=== PATIENT | female | born 1980 | race Caucasian/White ===

== ENCOUNTER 2016-12-17 16:30 | Emergency (ER) | payer SELFPAY ==
--- NOTE | 2016-12-17 19:21 | ED ORDER SUMMARY ---
..... Patient: ASHLY BENAVIDES OrderSheet [facility] VisitID: [id number] [place] [address] 36y, F Registration Date/Time: 12/17/2016 ORDER SHEET Weight: 84.8 kg (stated) Allergies: None GENERAL ORDERS: CBC w Diff Urgent (17:03 12/17/2016 HBivens A.R.N.P.) (Ack 17:04 PWeiler ER Tech1) (17:14 LWhalen R.N.) CMP Urgent (17:12/17/2016 HBivens A.R.N.P.) (Ack 17:04 PWeiler ER Tech1) (17:14 LWhalen R.N.) UA-Culture if indicated Urgent (17:12/17/2016 HBivens A.R.N.P.) (Ack 17:04 PWeiler ER Tech1) (17:14 LWhalen R.N.) Amylase Urgent (17:03 12/17/2016 HBivens A.R.N.P.) (Ack 17:04 PWeiler ER Tech1) (17:14 LWhalen R.N.) Lipase Urgent (17:03 12/17/2016 HBivens A.R.N.P.) (Ack 17:04 PWeiler ER Tech1) (17:14 LWhalen R.N.) Urine Drug Screen Urgent (17:12/17/2016 HBivens A.R.N.P.) (Ack 17:04 PWeiler ER Tech1) (17:14 LWhalen R.N.) MEDICATION ORDERS: IV FLUIDS: IV NS : initial bolus 1000 mL (1000 mL/hr), then none - (NOW) (17:03 12/17/2016 HBivens A.R.N.P.) (17:05 LWhalen R.N.) Toradol IV 30 mg (NOW) (17:12/17/2016 HBivens A.R.N.P.) (17:14 LWhalen R.N.) Zofran IV 4 mg (NOW) (17:03 12/17/2016 HBivens A.R.N.P.) (17:06 Jemal R.N.) IV Saline Lock (17:03 12/17/2016 HBivens A.R.N.P.) (Ack 17:05 Jemal R.N.) Zofran IV 4 mg (NOW) (19:21 12/17/2016 HBivens A.R.N.P.) (Ack 19:21 Gomez R.N.) (19:24 Gomez R.N.) ORDER SHEET NOTES: [Electronically signed by Sowmya Avila R.N. (19:38 12/17/2016)] [Electronically signed by Alexandra LackeyN.PDeana (21:32 12/17/2016)] [Electronically locked/signed by Sowmya Avila R.N. (19:38 12/17/2016)]
--- NOTE | 2016-12-17 19:21 | ED ORDER SUMMARY ---
..... Patient: ASHLY BENAVIDES OrderSheet [facility] VisitID: [id number] [place] [address] 36y, F Registration Date/Time: 12/17/2016 ORDER SHEET Weight: 84.8 kg (stated) Allergies: None GENERAL ORDERS: CBC w Diff Urgent (17:03 12/17/2016 HBivens A.R.N.P.) (Ack 17:04 PWeiler ER Tech1) (17:14 LWhalen R.N.) CMP Urgent (17:12/17/2016 HBivens A.R.N.P.) (Ack 17:04 PWeiler ER Tech1) (17:14 LWhalen R.N.) UA-Culture if indicated Urgent (17:12/17/2016 HBivens A.R.N.P.) (Ack 17:04 PWeiler ER Tech1) (17:14 LWhalen R.N.) Amylase Urgent (17:03 12/17/2016 HBivens A.R.N.P.) (Ack 17:04 PWeiler ER Tech1) (17:14 LWhalen R.N.) Lipase Urgent (17:03 12/17/2016 HBivens A.R.N.P.) (Ack 17:04 PWeiler ER Tech1) (17:14 LWhalen R.N.) Urine Drug Screen Urgent (17:12/17/2016 HBivens A.R.N.P.) (Ack 17:04 PWeiler ER Tech1) (17:14 LWhalen R.N.) MEDICATION ORDERS: IV FLUIDS: IV NS : initial bolus 1000 mL (1000 mL/hr), then none - (NOW) (17:03 12/17/2016 HBivens A.R.N.P.) (17:05 LWhalen R.N.) Toradol IV 30 mg (NOW) (17:12/17/2016 HBivens A.R.N.P.) (17:14 LWhalen R.N.) Zofran IV 4 mg (NOW) (17:03 12/17/2016 HBivens A.R.N.P.) (17:06 Jemal R.N.) IV Saline Lock (17:03 12/17/2016 HBivens A.R.N.P.) (Ack 17:05 Jemal R.N.) Zofran IV 4 mg (NOW) (19:21 12/17/2016 HBivens A.R.N.P.) (Ack 19:21 Gomez R.N.) (19:24 Gomez R.N.) ORDER SHEET NOTES: [Electronically signed by Sowmya Avila R.N. (19:38 12/17/2016)] [Electronically signed by Alexandra LackeyN.PDeana (21:32 12/17/2016)] [Electronically locked/signed by Sowmya Avila R.N. (19:38 12/17/2016)]
--- NOTE | 2016-12-17 19:21 | ED NURSING NOTES ---
Clinical Report - Nurses [facility] [place] [address] 12/17/2016 16:32 Patient: ASHLY BENAVIDES TRIAGE Triage time 16:42 Dec 17 2016. Acuity: LEVEL 3. Chief Complaint: ABDOMINAL PAIN, NAUSEA and VOMITING. AVERY COMA SCORE: [place] Coma Scale: 15- eyes open spontaneously (4); best verbal response- oriented x 4 (5); best motor response- obeys commands (6). --17:00 Jacqui Banks R.N. 16:41 12/17/16. BP: 141/89. HR: 84. RR: 18. O2 saturation: 96%. Temp: 98.4 F. Pain level now 8/10. --17:00 Jacqui Banks R.N. Weight: 84.8 kg stated. Height/Length: 64 inches Per Patient. BMI: 32.1. --16:59 Jacqui Banks R.N. Medications Omeprazole Oral. --16:52 Jacqui Banks R.N. Allergies None. --16:52 Jacqui Banks R.N. History Arrived by private vehicle. Historian: patient. ( 2 days of abdominal pain and vomiting. Had this on [facility] and found out she had a ruptured ovarian cyst and torsion.). She has had nausea, vomiting and abdominal pain. PAST MEDICAL HX: The patient has had a hysterectomy. SOCIAL HX: Never smoker. History of drug use: marijuana. No alcohol use. No recent travel. No known contact with a sick individual. SELF HARM ASSESSMENT: A self harm assessment was performed. The patient answered "no" to the question "Have you recently felt down, depressed, or hopeless?" and "Do you have thoughts of harming or killing yourself?". FALL RISK ASSESSMENT: Fall risk assessment completed. No fall risk identified. NUTRITIONAL RISK ASSESSMENT: The nutritional risk assessment revealed no deficiencies. FUNCTIONAL ASSESSMENT: Functional assessment: no impairments noted. LEARNING NEEDS ASSESSMENT: The learning needs assessment revealed no barriers. ABUSE ASSESSMENT: Abuse assessment: (yes) The patient was asked "Do you feel safe in your home?". SKIN INTEGRITY ASSESSMENT: Skin integrity risk assessment completed. No skin integrity risk identified. --17:00 Jacqui Banks R.N. PROBLEMS: Ovarian Cyst. Head Injury. Contusion. Syncope. Mental Illness. --16:54 Jacqui Banks R.N. ADDITIONAL SURGERIES: Dilatation & Curettage. Hysterectomy. Laparoscopy. [place] teeth . --16:54 Jacqui Banks R.N. Interventions ID band on patient. --17:00 Jacqui Banks R.N. PHYSICAL ASSESSMENT Ambulatory to room. GENERAL / NEURO / PSYCH: Alert. Oriented X 4. Appears in pain and in distress. HEENT: Mucous membranes are pink. RESPIRATORY: Respirations not labored. Breath sounds within normal limits. CVS: Normal sinus rhythm noted. Capillary refill less than 2 seconds. GI / : Abdomen soft. Abdominal tenderness in the left lower quadrant. Bowel sounds within normal limits. Stool color normal. ( Last BM today and normal.). SKIN: Skin is warm and dry. --17:01 Jacqui Banks R.N. NURSING PROGRESS NOTES The initial plan of care for this patient includes an assessment with efforts to address patient positioning, appropriate ambient lighting and comfortable environmental temperature; impairment of the gastrointestinal system. Pulse oximeter and NIBP monitor placed on patient. Patient gowned. Reassurance given. Call light placed in reach. Side rails up x 1. Bed placed in lowest position. Brakes of bed on. --17:02 Jacqui Banks R.N. 16:52 12/17/2016 Site #1 started via IV in the right antecubital space with an 20g angiocath, with aseptic technique and good blood return; one attempt. Blood drawn: rainbow set. Labeled in the presence of the patient and sent to the lab. Saline lock flushed with 10 mL saline. --17:02 Jacqui Banks R.N. 17:00 12/17/2016 Started bag #1 1000 mL IV Fluids IV NS (Saline); at 1000 mL/hr over 1 hour(s) via site #1 via dial-a-flow. Allergies verified and confirmed 5 rights. IV patency established. IV site checked: no pain, redness, or swelling. IV flushed thoroughly pre- and post-medication administration. --17:05 Jacqui Banks R.N. 17:06 12/17/2016 Zofran (Ondansetron HCl) IVP 4 mg given over 2 minute(s) via site #1. Allergies verified and confirmed 5 rights. IV patency established. IV site checked: no pain, redness, or swelling. IV flushed thoroughly pre- and post-medication administration. --17:06 Jacqui Banks R.N. 17:14 12/17/2016 Toradol IVP 30 mg given over 2 minute(s) via site #1. Allergies verified and confirmed 5 rights. IV patency established. IV site checked: no pain, redness, or swelling. IV flushed thoroughly pre- and post-medication administration. --17:14 Jacqui Banks R.N. Care transferred and report received. --19:16 Sowmya Avila R.N. 19:12/17/16. BP: 145/73. HR: 83. RR: 18. O2 saturation: 100%. Temp: 98 F. Pain level now: 11/16. 17:20 12/17/16. BP: 136/72. HR: 83. RR: 18. O2 saturation: 100%. --19:23 Jacqui Banks R.N. 17:23 12/17/2016 IV Fluids IV NS Discontinued: bag #1 infused. Total amount infused: 1000 mL. IV patency established. IV site checked: no pain, redness, or swelling. IV flushed thoroughly. --19:24 Jacqui Banks R.N. 19:24 12/17/2016 Zofran (Ondansetron HCl) IVP 4 mg given over 30 second(s) via site #1. Allergies verified and confirmed 5 rights. IV patency established. IV site checked: no pain, redness, or swelling. IV flushed thoroughly pre- and post-medication administration. IVP given by RN. --19:24 Sowmya Avila R.N. DISPOSITION / DISCHARGE 19:22 12/17/16. BP: 145/73. HR: 83. RR: 18. O2 saturation: 100%. Temp: 98 F. Pain level now: 11/16. --19:23 Jacqui Banks R.N. 19:35 12/17/2016 Site #1 removed upon discharge. Catheter intact. Manual pressure and bandage applied. --19:38 Sowmya Avila R.N. Condition at departure: improved and stable. No learning barriers present. Discharge instructions provided and reviewed with the patient. Reviewed medication(s) side effects, precautions, dosing and course information. Prescription(s) given to the patient (Shauna). Patient verbalized understanding. Written instructions provided in [place]. The patient was discharged home and accompanied by software configuration analyst. She left the Emergency Department ambulatory and via private vehicle. [employer] driving. --19:38 Sowmya Avila R.N. Locked/Released at 12/17/2016 19:38 by Sowmya Avila R.N.
--- NOTE | 2016-12-17 19:21 | ED NURSING NOTES ---
Clinical Report - Nurses [facility] [place] [address] 12/17/2016 16:32 Patient: ASHLY BENAVIDES TRIAGE Triage time 16:42 Dec 17 2016. Acuity: LEVEL 3. Chief Complaint: ABDOMINAL PAIN, NAUSEA and VOMITING. AVERY COMA SCORE: [place] Coma Scale: 15- eyes open spontaneously (4); best verbal response- oriented x 4 (5); best motor response- obeys commands (6). --17:00 Jacqui Banks R.N. 16:41 12/17/16. BP: 141/89. HR: 84. RR: 18. O2 saturation: 96%. Temp: 98.4 F. Pain level now 8/10. --17:00 Jacqui Banks R.N. Weight: 84.8 kg stated. Height/Length: 64 inches Per Patient. BMI: 32.1. --16:59 Jacqui Banks R.N. Medications Omeprazole Oral. --16:52 Jacqui Banks R.N. Allergies None. --16:52 Jacqui Banks R.N. History Arrived by private vehicle. Historian: patient. ( 2 days of abdominal pain and vomiting. Had this on [facility] and found out she had a ruptured ovarian cyst and torsion.). She has had nausea, vomiting and abdominal pain. PAST MEDICAL HX: The patient has had a hysterectomy. SOCIAL HX: Never smoker. History of drug use: marijuana. No alcohol use. No recent travel. No known contact with a sick individual. SELF HARM ASSESSMENT: A self harm assessment was performed. The patient answered "no" to the question "Have you recently felt down, depressed, or hopeless?" and "Do you have thoughts of harming or killing yourself?". FALL RISK ASSESSMENT: Fall risk assessment completed. No fall risk identified. NUTRITIONAL RISK ASSESSMENT: The nutritional risk assessment revealed no deficiencies. FUNCTIONAL ASSESSMENT: Functional assessment: no impairments noted. LEARNING NEEDS ASSESSMENT: The learning needs assessment revealed no barriers. ABUSE ASSESSMENT: Abuse assessment: (yes) The patient was asked "Do you feel safe in your home?". SKIN INTEGRITY ASSESSMENT: Skin integrity risk assessment completed. No skin integrity risk identified. --17:00 Jacqui Banks R.N. PROBLEMS: Ovarian Cyst. Head Injury. Contusion. Syncope. Mental Illness. --16:54 Jacqui Banks R.N. ADDITIONAL SURGERIES: Dilatation & Curettage. Hysterectomy. Laparoscopy. [place] teeth . --16:54 Jacqui Banks R.N. Interventions ID band on patient. --17:00 Jacqui Banks R.N. PHYSICAL ASSESSMENT Ambulatory to room. GENERAL / NEURO / PSYCH: Alert. Oriented X 4. Appears in pain and in distress. HEENT: Mucous membranes are pink. RESPIRATORY: Respirations not labored. Breath sounds within normal limits. CVS: Normal sinus rhythm noted. Capillary refill less than 2 seconds. GI / : Abdomen soft. Abdominal tenderness in the left lower quadrant. Bowel sounds within normal limits. Stool color normal. ( Last BM today and normal.). SKIN: Skin is warm and dry. --17:01 Jacqui Banks R.N. NURSING PROGRESS NOTES The initial plan of care for this patient includes an assessment with efforts to address patient positioning, appropriate ambient lighting and comfortable environmental temperature; impairment of the gastrointestinal system. Pulse oximeter and NIBP monitor placed on patient. Patient gowned. Reassurance given. Call light placed in reach. Side rails up x 1. Bed placed in lowest position. Brakes of bed on. --17:02 Jacqui Banks R.N. 16:52 12/17/2016 Site #1 started via IV in the right antecubital space with an 20g angiocath, with aseptic technique and good blood return; one attempt. Blood drawn: rainbow set. Labeled in the presence of the patient and sent to the lab. Saline lock flushed with 10 mL saline. --17:02 Jacqui Banks R.N. 17:00 12/17/2016 Started bag #1 1000 mL IV Fluids IV NS (Saline); at 1000 mL/hr over 1 hour(s) via site #1 via dial-a-flow. Allergies verified and confirmed 5 rights. IV patency established. IV site checked: no pain, redness, or swelling. IV flushed thoroughly pre- and post-medication administration. --17:05 Jacqui Banks R.N. 17:06 12/17/2016 Zofran (Ondansetron HCl) IVP 4 mg given over 2 minute(s) via site #1. Allergies verified and confirmed 5 rights. IV patency established. IV site checked: no pain, redness, or swelling. IV flushed thoroughly pre- and post-medication administration. --17:06 Jacqui Banks R.N. 17:14 12/17/2016 Toradol IVP 30 mg given over 2 minute(s) via site #1. Allergies verified and confirmed 5 rights. IV patency established. IV site checked: no pain, redness, or swelling. IV flushed thoroughly pre- and post-medication administration. --17:14 Jacqui Banks R.N. Care transferred and report received. --19:16 Sowmya Avila R.N. 19:12/17/16. BP: 145/73. HR: 83. RR: 18. O2 saturation: 100%. Temp: 98 F. Pain level now: 11/16. 17:20 12/17/16. BP: 136/72. HR: 83. RR: 18. O2 saturation: 100%. --19:23 Jacqui Banks R.N. 17:23 12/17/2016 IV Fluids IV NS Discontinued: bag #1 infused. Total amount infused: 1000 mL. IV patency established. IV site checked: no pain, redness, or swelling. IV flushed thoroughly. --19:24 Jacqui Banks R.N. 19:24 12/17/2016 Zofran (Ondansetron HCl) IVP 4 mg given over 30 second(s) via site #1. Allergies verified and confirmed 5 rights. IV patency established. IV site checked: no pain, redness, or swelling. IV flushed thoroughly pre- and post-medication administration. IVP given by RN. --19:24 Sowmya Avila R.N. DISPOSITION / DISCHARGE 19:22 12/17/16. BP: 145/73. HR: 83. RR: 18. O2 saturation: 100%. Temp: 98 F. Pain level now: 11/16. --19:23 Jacqui Banks R.N. 19:35 12/17/2016 Site #1 removed upon discharge. Catheter intact. Manual pressure and bandage applied. --19:38 Sowmya Avila R.N. Condition at departure: improved and stable. No learning barriers present. Discharge instructions provided and reviewed with the patient. Reviewed medication(s) side effects, precautions, dosing and course information. Prescription(s) given to the patient (Shauna). Patient verbalized understanding. Written instructions provided in [place]. The patient was discharged home and accompanied by gifted teacher. She left the Emergency Department ambulatory and via private vehicle. Inclusion Specialist driving. --19:38 Sowmya Avila R.N. Locked/Released at 12/17/2016 19:38 by Sowmya Avila R.N.
--- NOTE | 2016-12-17 19:21 | ED CLINICAL REPORT ---
Clinical Report - Physicians/Mid Levels [facility] [address] [place] [address] 12/17/2016 16:32 Patient: ASHLY BENAVIDES Time Seen: 16:48; initial patient contact, initial documentation, patient care assumed. Arrived- By private vehicle. Historian- patient. HISTORY OF PRESENT ILLNESS Chief Complaint: VOMITING. This started about 3 - days ago and is still present. It was abrupt in onset. No recent travel. She has had nausea and vomiting. No diarrhea, black stools, bloody stools, constipation or flank pain. No history of possible bad food exposure, known contact with a sick individual or change in routine. She has had abdominal pain. The pain is described as located in the LLQ and associated with nausea and vomiting. No diarrhea. Has not recently been camping or on antibiotics. The illness is described as moderate. Similar symptoms previously: None. Recent medical care: The patient was seen recently in the office and a clinic. ( had f/u US done on 12/02 because x3 mos ago had cyst removed from L ovary, pt brought US report with her, went to clinic dining room captain and sent here for further eval). REVIEW OF SYSTEMS No fever, difficulty with urination, dark urine, chest pain or difficulty breathing. Denies current . All systems otherwise negative, except as recorded above. PAST HISTORY See nurses notes. PROBLEMS: Ovarian Cyst. Head Injury. Contusion. Syncope. Mental Illness. --16:54 Jacqui Banks R.N. ADDITIONAL SURGERIES: Dilatation & Curettage. Hysterectomy. Laparoscopy. [place] teeth . --16:54 Jacqui Banks R.N. SOCIAL HISTORY Never smoker. Occasional alcohol use. History of occasional drug use: marijuana. Recently used drugs yesterday. No recent travel. Is a local resident. FAMILY HISTORY Negative. ADDITIONAL NOTES The nursing notes have been reviewed with agreement regarding the chief complaint, HPI, ROS, PMH and patient medications and allergies. PHYSICAL EXAM Vital Signs: 12/17/2016 16:41 BP: 141/89. HR: 84. RR: 18. O2 saturation: 96%. Temp: 98.4 F. Have been reviewed as normal and appear to be correct. Appearance: Alert. Oriented X3. No acute distress. Eyes: Pupils equal, round and reactive to light. Eyes normal inspection. Neck: Normal inspection. Neck supple. CVS: Normal heart rate and rhythm. Heart sounds normal. Pulses normal. Respiratory: No respiratory distress. Breath sounds normal. Abdomen: Soft. Mild tenderness in the left lower quadrant. Bowel sounds normal. No organomegaly. No mass. Tenderness present. Back: Normal inspection. Skin: Skin warm and dry. Normal skin color. No rash. Normal skin turgor. Extremities: Extremities exhibit normal ROM. No lower extremity edema. Neuro: Oriented X 3. No motor deficit. No sensory deficit. LABS, X-RAYS, AND EKG Laboratory Tests: UA-Culture if indicated: (IMELDA: 12/17/2016 16:50) ( [facility] [place] Final results Test Result Flag Units (Reference) URINE COLOR YELLOW URINE APPEARANCE CLEAR URINE GLUCOSE NEGATIVE (NEGATIVE) URINE BILIRUBIN NEGATIVE (NEGATIVE) URINE KETONE NEGATIVE (NEGATIVE) URINE SPECIFIC GRAVITY 1.015 (1.010-1.030) URINE PH 6.0 (5.0-8.0) URINE PROTEIN NEGATIVE (NEGATIVE) URINE UROBILINOGEN 0.2 EU/dL (0.2-1.0) URINE NITRITE NEGATIVE (NEGATIVE) URINE BLOOD 1+ (NEGATIVE) URINE LEUK ESTERASE NEGATIVE (NEGATIVE) URINE RBC RARE rbc/hpf (0-1) URINE WBC 0-1 wbc/hpf (0-1) URINE EPITHELIAL CELLS 1-3 EPI/hpf (0-5) URINE BACTERIA MODERATE (2+ TO 3+) (NONE SEEN) URINE COMMENT CULTURE INDICATED URINE CULTURES ARE SET-UP BASED ON THE FOLLOWING CRITERIA:POSITIVE NITRITEPOSITIVE LEUKOCYTE ESTERASEGREATER THAN 10 WHITE BLOOD CELLSMODERATE (2+) OR GREATER BACTERIA CBC w Diff: (IMELDA: 12/17/2016 17:00) ( [facility] [place]17[facility] 17:24) Final results Test Result Flag Units (Reference) WHITE BLOOD COUNT 12.5 H K/uL (4.5-11.5) RED BLOOD COUNT 4.78 M/uL (4.00-5.20) HEMOGLOBIN 14.1 gm/dL (12.0-16.0) HEMATOCRIT 41.9 % (36.0-46.0) MEAN CELL VOLUME 88 fL (80-100) MEAN CORPUSCULAR HGB 30 pg (26-34) MEAN CORPUSCULAR HGB CONC 34 g/dL (31-37) RED CELL DISTRIBUTION WIDTH 12.9 % (11.6-14.8) PLATELET COUNT 319 K/uL (150-400) NEUTROPHIL % 75.7 H % (50-75) LYMPH % 16.2 L % (25-40) MONO % 6.9 % (3-14) EOSINOPHIL % 0.8 % (0-4) BASOPHIL % 0.4 % (0-2) Urine Drug Screen: (IMELDA: 12/17/2016 16:50) ( MsgRcvd 12/17/2016 17:37) Final results Test Result Flag Units (Reference) AMPHETAMINE/METHAMPHETAMINE NEGATIVE (NEGATIVE) BARBITURATE NEGATIVE (NEGATIVE) BENZODIAZEPINE NEGATIVE (NEGATIVE) CANNABINOID POSITIVE H (NEGATIVE) COCAINE NEGATIVE (NEGATIVE) ECSTASY NEGATIVE (NEGATIVE) METHADONE NEGATIVE (NEGATIVE) OPIATE NEGATIVE (NEGATIVE) The urine drug screen is a qualitative screening test fordrug overdose and abuse. All screen results should beconsidered as presumptive.Drugs screened for are as follows:BenzodiazepinesCocaineAmphetamines/MetamphetaminesTHC (Tetrahydrocannabinol)OpiatesBarbituratesEcstasyMethadonePositive results are unconfirmed. For confirmation, notifythe lab for the specimen to be sent to the reference lab.All confirmations must be performed by a differentmethodology.The ingestion of natural herbal and plant productscontaining Ephedra/Ephedra metabolites can produce in urineone or more substances capable of cross reacting withamphetamine/methamphetamine immunoassays. These testsprovide a preliminary result only. A more specificalternative chemical method must be used to obtain aconfirmed analytical result. CMP: (IMELDA: 12/17/2016 17:00) ( MsgRcvd 12/17/2016 17:38) Final results Test Result Flag Units (Reference) GLUCOSE 102 mg/dL (70-110) BUN 7 mg/dL (7-18) CREATININE 0.7 mg/dL (0.6-1.3) Estimated GFR >60 mL/min Estimated GFR- >60 mL/min Note: Persistent reduction over 3 months in eGFR<60 mL/min/1.73 m2 defines CKD. Patients with eGFR values>=60 mL/min/1.73 m2 may also have CKD if evidence ofpersistent proteinuria. Additional information may be foundat www.kidney.org. SODIUM 140 mmol/L (136-145) POTASSIUM 3.3 L mmol/L (3.5-5.1) CHLORIDE 103 mmol/L (98-107) CARBON DIOXIDE 24 mmol/L (21-32) CALCIUM 9.3 mg/dL (8.5-10.1) TOTAL PROTEIN 8.1 g/dL (6.4-8.2) ALBUMIN 4.1 g/dL (3.3-5.0) BILIRUBIN, TOTAL 0.4 mg/dL (0.0-1.0) ALKALINE PHOSPHATASE 71 U/L (46-116) AST (SGOT) 18 U/L (15-37) ALT (SGPT) 29 U/L (12-78) LIPASE 96 U/L (73-393) AMYLASE 44 U/L (25-115) . PROGRESS AND PROCEDURES Course of Care: upon exam, pt telling me she doesn't want further imaging if not absolutely necessary, due to money pt has annalisa, nothing alarming, few steven rxs and #3 er visits, see report for full details reports from clinic, from Dr Sheth, reviewed 1909. results of labs discussed and pt aware Dr Sheth was advising ER staff to do either US or CT, to r/o hemorrhage, tx plan discussed and pt does not want any further tests, due to money issues, agreed to return if pain increased or worsening s/s, pt has suppositories at home for vomiting and pain meds, agreed to do another rx of zofran odt, and give one more dose here prior to dc, pt stated she did feel better. Patient counseled in person regarding the patient's stable condition, test results and diagnosis. Differential Diagnosis: I considered gastritis, peptic ulcer disease, gastroesophageal reflux disease, gastroparesis, Crohn's disease, ulcerative colitis, small bowel obstruction, gastric outlet obstruction, colonic obstruction, colon cancer, gastroenteritis, pancreatitis, viral syndrome, enterocolitis, urinary tract infection, sepsis, drugs and psychogenic etiology as a possible cause of vomiting in this patient. This is a partial list of diagnoses considered. Above considerations are based on history, physical exam, reassessment and laboratory data. Differential diagnosis was discussed with patient. Disposition: Discharged home in good and improved condition (19:21). Condition: good and stable. CLINICAL IMPRESSION Intractable vomiting with nausea. No dehydration or volume depletion. Not bilious. INSTRUCTIONS Warnings: GENERAL WARNINGS: Return or contact your physician immediately if your condition worsens or changes unexpectedly, if not improving as expected, or if other problems arise. SPECIFICALLY, return if you develop pain in the abdomen or pelvis, fever, the inability to keep fluids down, blood in vomitus, blood in diarrhea, fainting, lightheadedness or vaginal bleeding. Prescription Medications: Zofran 4 mg: Take 1 orally every six hours as needed for nausea/vomiting. Dispense ten (10). No refills. Substitution is permissible. Follow-up: Follow up with your doctor tomorrow even if well. Call for an appointment. Summary of care provided to patient. Understanding of the discharge instructions verbalized by patient. (Electronically signed by Alexandra Lackey A.R.N.P. 12/17/2016 21:32)
--- NOTE | 2016-12-17 21:32 | ED MED RECONCILIATION SUMMARY ---
Patient: ASHLY BENAVIDES Medication Reconciliation Report [facility] [place] VisitID: [id number] [place] [address] 36y, F Registration Date/Time: 12/17/2016 Weight: 84.8 kg Height/Length: 64 in. BMI: 32.1 ALLERGIES: None The patient's Home Medications are listed below: THE FOLLOWING MEDICATIONS NEED TO BE RECONCILED: Omeprazole Oral The source(s) of the original Home Medication information: Not obtained. The following Medications were given to the patient in the Emergency Department: IV NS IV Fluids bolus 0, then 1000 mL/hr, administered: 12/17/2016 5:00:00 PM Zofran [IVP] IVP 4 mg, administered: 12/17/2016 5:06:00 PM Toradol [IVP] IVP 30 mg, administered: 12/17/2016 5:14:00 PM Zofran [IVP] IVP 4 mg, administered: 12/17/2016 7:24:00 PM The following Medications were prescribed to the patient: Zofran 4 mg: Take 1 orally every six hours as needed for nausea/vomiting. Dispense ten (10). No refills. Substitution is permissible. -- Alexandra Lackey A.R.N.P.
--- NOTE | 2016-12-17 21:32 | ED MED RECONCILIATION SUMMARY ---
Patient: ASHLY BENAVIDES Medication Reconciliation Report [facility] VisitID: [id number] [place] [address] 36y, F Registration Date/Time: 12/17/2016 Weight: 84.8 kg Height/Length: 64 in. BMI: 32.1 ALLERGIES: None The patient's Home Medications are listed below: THE FOLLOWING MEDICATIONS NEED TO BE RECONCILED: Omeprazole Oral The source(s) of the original Home Medication information: Not obtained. The following Medications were given to the patient in the Emergency Department: IV NS IV Fluids bolus 0, then 1000 mL/hr, administered: 12/17/2016 5:00:00 PM Zofran [IVP] IVP 4 mg, administered: 12/17/2016 5:06:00 PM Toradol [IVP] IVP 30 mg, administered: 12/17/2016 5:14:00 PM Zofran [IVP] IVP 4 mg, administered: 12/17/2016 7:24:00 PM The following Medications were prescribed to the patient: Zofran 4 mg: Take 1 orally every six hours as needed for nausea/vomiting. Dispense ten (10). No refills. Substitution is permissible. -- Alexandra Lackey A.R.N.P.
--- NOTE | 2016-12-17 21:32 | ED DISCHARGE INSTRUCTIONS ---
Patient: ASHLY BENAVIDES General Instructions [facility] VisitID: [id number] [place] [address] 36y, F Registration Date/Time: 12/17/2016 Intractable vomiting with nausea. No dehydration or volume depletion. Not bilious. INSTRUCTIONS Warnings: GENERAL WARNINGS: Return or contact your physician immediately if your condition worsens or changes unexpectedly, if not improving as expected, or if other problems arise. SPECIFICALLY, return if you develop pain in the abdomen or pelvis, fever, the inability to keep fluids down, blood in vomitus, blood in diarrhea, fainting, lightheadedness or vaginal bleeding. Prescription Medications: Zofran 4 mg: Take 1 orally every six hours as needed for nausea/vomiting. Dispense ten (10). No refills. Substitution is permissible. Follow-up: Follow up with your doctor tomorrow even if well. Call for an appointment. Summary of care provided to patient. Understanding of the discharge instructions verbalized by patient. ADDITIONAL INFORMATION Vomiting [6Yr-Adult] Vomiting is a common symptom that may be due to different causes. These include gastroenteritis ("stomach flu"), food poisoning and gastritis. There are other more serious causes of vomiting which may be hard to diagnose early in the illness. Therefore, it is important to watch for the warning signs listed below. The main danger from repeated vomiting is dehydration. This is due to excess loss of water and minerals from the body. When this occurs, body fluids must be replaced. Home Care: If symptoms are severe, rest at home for the next 24 hours. You may use acetaminophen (Tylenol) or ibuprofen (Motrin, Advil) to control fever, unless another medicine was prescribed. [NOTE : If you have chronic liver or kidney disease or ever had a stomach ulcer or GI bleeding, talk with your doctor before using these medicines.] (Aspirin should never be used in anyone under 18 years of age who is ill with a fever. It may cause severe liver damage.) Avoid tobacco and alcohol use, which may worsen your symptoms. If medicines for vomiting were prescribed, take as directed. Once vomiting stops, then follow these guidelines: During The First 12-24 Hours follow the diet below: FRUIT JUICES: Apple, grape juice, clear fruit drinks, and electrolyte replacement drinks. BEVERAGES: Soft drinks without caffeine; mineral water (plain or flavored), decaffeinated tea and coffee. SOUPS: Clear broth, consomm and bouillon DESSERTS: Plain gelatin, popsicles and fruit juice bars. As you feel better, you may add 6-8 ounces of yogurt per day. During The Next 24 Hours you may add the following to the above: Hot cereal, plain toast, bread, rolls, crackers Plain noodles, rice, mashed potatoes, chicken noodle or rice soup Unsweetened canned fruit (avoid pineapple), bananas Limit caffeine and chocolate. No spices or seasonings except salt. During The Next 24 Hours Gradually resume a normal diet, as you feel better and your symptoms lessen. Follow Up with your doctor as advised if you are not improving over the next 2-3 days. Get Prompt Medical Attention if any of the following occur: Constant right-sided lower abdominal pain or increasing general abdominal pain Continued vomiting (unable to keep liquids down) for 24 hours Frequent diarrhea (more than 5 times a day); blood (red or black color) or mucus in diarrhea Reduced urine output or extreme thirst Weakness, dizziness or fainting Unusually drowsy or confused Fever of 100.4F (38C) oral or higher, not better with fever medication Yellow color of the eyes or skin Viral Gastroenteritis (6Yr-Adult) Gastroenteritis is another name for thestomach flu.It is most often caused by a virus that affects the stomach and intestinal tract. Symptoms include stomach cramping and fever, vomiting and/or diarrhea, and can last from 2 to 7 days. The danger from repeated vomiting or diarrhea is dehydration. This is the loss of too much water and minerals from the body. When this occurs, body fluids must be replaced. Antibiotics are not effective for this illness, but simple home treatment will be helpful. Home Care If symptoms are severe, rest at home for the next 24 hours. Avoid tobacco, caffeine, and alcohol use, which can worsen symptoms. Acetaminophen (Tylenol) or ibuprofen (Motrin, Advil) may be usedfor fever or pain unless another medication was prescribed. NOTE: If you have chronic liver or kidney disease or ever had a stomach ulcer or GI bleeding, talk with your doctor before using these medicines. Aspirin should never be used in anyone under 18 years of age who is ill with a fever. It may cause severe liver damage. If medicines for diarrhea or vomiting were prescribed, be sure they are takenonly as directed. If vomiting, drink small amounts of clear fluids (such as water, sports drinks, clear sodas) at frequent intervals to prevent dehydration. Start with 1 to 2 tablespoons every 10 minutes. Once vomiting stops, follow these guidelines: During The First 12 To 24 Hours follow the diet below: Beverages: Sport drinks like Gatorade, soft drinks without caffeine; mingo flores, mineral water (plain or flavored), decaffeinated tea and coffee. Soups: Clear broth, consomm and bouillon Desserts: Plain gelatin (Jell-O), Popsicles and fruit juice bars. During The Next 24 Hours you may add the following to the above: Hot cereal, plain toast, bread, rolls, crackers Plain noodles, rice, mashed potatoes, chicken noodle or rice soup Unsweetened canned fruit (avoid pineapple), bananas Limit fat intake to less than 15 grams per day by avoiding margarine, butter, oils, mayonnaise, sauces, gravies, fried foods, peanut butter, meat, poultry, and fish. Limit fiber; avoid raw or cooked vegetables, fresh fruits (except bananas), and bran cereals. Limit caffeine and chocolate. Do not use spices or seasonings except salt. During The Next 24 Hours The patient can gradually resume a normal diet as symptoms lessen. Preventing Spread Hand washing with soap and water is the best way to prevent the spread of viruses. Caregivers should wash their hands before andafter touching the sick person. The sick person, as well as everyone in the family,should wash their hands after using the toilet and before meals. Clean the toilet after each use. People with diarrhea should not prepare food for others. If you are preparing your own foods, wash your hands before and after. Follow Up with your doctor as advised. Call your doctor if you are not improving over the next 2 to 3 days. If a stool (diarrhea) sample was taken, you may call in 2 days (or as directed) for the results. Get Prompt Medical Attention if any of the following occur: Increasing abdominal pain Continued vomiting (unable to keep liquids down) Frequent diarrhea (more than 5 times a day) Blood in vomit or stool (black or red color) Dark urine, reduced urine output, or extreme thirst Weakness, dizziness, fainting Drowsiness, confusion, stiff neck, or seizure Fever of 100.4F (38C) oral or higher, not better with fever medication New rash Ondansetron Oral disintegrating tablet What is this medicine? ONDANSETRON (on KIYA se ed) is used to treat nausea and vomiting caused by chemotherapy. It is also used to prevent or treat nausea and vomiting after surgery. How should I use this medicine? These tablets are made to dissolve in the mouth. Do not try to push the tablet through the foil backing. With dry hands, peel away the foil backing and gently remove the tablet. Place the tablet in the mouth and allow it to dissolve, then swallow. While you may take these tablets with water, it is not necessary to do so. Talk to your community health coordinator regarding the use of this medicine in children. Special care may be needed. What side effects may I notice from receiving this medicine? Side effects that you should report to your doctor or health child care coordinator as soon as possible: allergic reactions like skin rash, itching or hives, swelling of the face, lips, or tongue breathing problems dizziness fast or irregular heartbeat feeling faint or lightheaded, falls fever and chills swelling of the hands and feet tightness in the chest Side effects that usually do not require medical attention (report to your doctor or health child care coordinator if they continue or are bothersome): constipation or diarrhea headache What may interact with this medicine? Do not take this medicine with any of the following medications: -apomorphine -cisapride -dofetilide -dronedarone -pimozide -thioridazine -ziprasidone This medicine may also interact with the following medications: -carbamazepine -phenytoin -rifampicin -tramadol -other medicines that prolong the QT interval (cause an abnormal heart rhythm) What if I miss a dose? If you miss a dose, take it as soon as you can. If it is almost time for your next dose, take only that dose. Do not take double or extra doses. Where should I keep my medicine? Keep out of the reach of children. Store between 2 and 30 degrees C (36 and 86 degrees F). Throw away any unused medicine after the expiration date. What should I tell my health care provider before I take this medicine? They need to know if you have any of these conditions: heart disease history of irregular heartbeat liver disease low levels of magnesium or potassium in the blood an unusual or allergic reaction to ondansetron, granisetron, other medicines, foods, dyes, or preservatives or trying to get breast-feeding What should I watch for while using this medicine? Check with your doctor or health child care coordinator as soon as you can if you have any sign of an allergic reaction. You have been given the following additional information: Vomiting (6Y-Adult) Gastroenteritis, Viral (6Y-Adult) Ondansetron Oral disintegrating tablet (Electronically signed by Alexandra Lackey A.R.NDeanaP. 12/17/2016 21:32)
--- NOTE | 2016-12-17 21:32 | ED MAR SUMMARY ---
..... Medication Administration Record [facility] [address] [place] [address] Patient: ASHLY BENAVIDES Visit ID: [id number] 36y, F Weight: 84.8 kg Height/Length: 64 in BMI: 32.1 ALLERGIES: None Start 17:00 12/17/2016 Jacqui Banks R.N., Stop 17:23 12/17/2016 Jacqui Banks R.N. Medication Administered: IV NS (SALINE), Dose: IV Fluids over 1 hour(s), Rate: 1000 mL/hr, Dispensed: 1000 mL bag, Site: #1 right AC. Medication Ordered: IV NS : initial bolus 1000 mL (1000 mL/hr), then none - (NOW). Given 17:06 12/17/2016 Jacqui Banks R.N. Medication Administered: ZOFRAN [IVP] (ONDANSETRON HCL), Dose: 4 mg IVP over 2 minute(s), Site: #1 right AC. Medication Ordered: Zofran IV 4 mg (NOW). Given 17:14 12/17/2016 Jacqui Banks R.N. Medication Administered: TORADOL [IVP], Dose: 30 mg IVP over 2 minute(s), Site: #1 right AC. Medication Ordered: Toradol IV 30 mg (NOW). Given 19:24 12/17/2016 Sowmya Avila RGabriele Medication Administered: ZOFRAN [IVP] (ONDANSETRON HCL), Dose: 4 mg IVP over 30 second(s), Site: #1 right AC. Medication Ordered: Zofran IV 4 mg (NOW).
--- NOTE | 2016-12-17 21:32 | ED MAR SUMMARY ---
..... Medication Administration Record [facility] [address] [place] [address] Patient: ASHLY BENAVIDES Visit ID: [id number] 36y, F Weight: 84.8 kg Height/Length: 64 in BMI: 32.1 ALLERGIES: None Start 17:00 12/17/2016 Jacqui Banks R.N., Stop 17:23 12/17/2016 Jacqui Banks R.N. Medication Administered: IV NS (SALINE), Dose: IV Fluids over 1 hour(s), Rate: 1000 mL/hr, Dispensed: 1000 mL bag, Site: #1 right AC. Medication Ordered: IV NS : initial bolus 1000 mL (1000 mL/hr), then none - (NOW). Given 17:06 12/17/2016 Jacqui Banks R.N. Medication Administered: ZOFRAN [IVP] (ONDANSETRON HCL), Dose: 4 mg IVP over 2 minute(s), Site: #1 right AC. Medication Ordered: Zofran IV 4 mg (NOW). Given 17:14 12/17/2016 Jacqui Banks R.N. Medication Administered: TORADOL [IVP], Dose: 30 mg IVP over 2 minute(s), Site: #1 right AC. Medication Ordered: Toradol IV 30 mg (NOW). Given 19:24 12/17/2016 Sowmya Avila RGabriele Medication Administered: ZOFRAN [IVP] (ONDANSETRON HCL), Dose: 4 mg IVP over 30 second(s), Site: #1 right AC. Medication Ordered: Zofran IV 4 mg (NOW).
== END 2016-12-17 19:35 | disposition home or self-care (01) ==
LOC: ED SRH 16:30
DX: R11.2 Nausea with vomiting, unspecified (principal); R10.32 Left lower quadrant pain; Z79.899 Other long term (current) drug therapy; F12.90 Cannabis use, unspecified, uncomplicated
CPT/HCPCS: 90004; 90074; 90100; 90469; 92235; 92530; 92760; 92761; 92762; 92763; 92764; 92765; 92766; 92767; 95059